=== PATIENT | female | born 1970 | race Caucasian/White ===

== ENCOUNTER 2022-07-11 16:06 | Emergency (ER) | payer OTHER ==
--- NOTE | 2022-07-11 17:25 | ED Physician Documentation ---
PD HPI BACK PAIN - Stated complaint Stated Complaint: BACK PAIN - Chief complaint Chief Complaint: Back Pain - History obtained from History obtained from: Patient - History of Present Illness Timing - onset: How many days ago (several) Timing - duration: Days (several) Timing - details: Gradual onset (patient with history of chronic low back pain on multiple daily meds. she states she had slip and fall on ice landing to left back/buttock. Not much worse pain at that time, but had increased pain later in day and into the past couple of days, despite her usual daily meds.), Still present Location: Lower, Left Quality: Pain, Spasm Associated symptoms: No: Fever, Weakness, Numbness Worsened by: Movement Contributing factors: Trauma (simple fall on ice to buttock/left side.) Review of Systems Constitutional: denies: Fever, Chills : denies: Dysuria, Frequency Skin: denies: Rash, Lesions Neurologic: denies: Focal weakness, Numbness PD PAST MEDICAL HISTORY - Past Medical History Cardiovascular: None Respiratory: None Musculoskeletal: Chronic back pain - Present Medications Home Medications: Ambulatory Orders Medication Instructions Recorded Confirmed Hydromorphone HCl 1 tab PO TID 07/11/22 07/11/22 Levothyroxine [Synthroid] 125 mcg PO QDAC 07/11/22 07/11/22 Oxycodone HCl 10 mg PO QID PRN #20 tablet 07/11/22 buprenorphine HCL [Buprenorphine 8 mg SL BID 07/11/22 07/11/22 HCl] dexAMETHasone [Decadron] 4 mg PO DAILY #5 tablet 07/11/22 diazePAM [Valium] 5 mg PO TID PRN #20 tablet 07/11/22 - Allergies Allergies/Adverse Reactions: Allergies Allergy/AdvReac Type Severity Reaction Status Date / Time No Known Drug Allergies Allergy Verified 07/11/22 16:12 - Living Situation Living Situation: reports: With spouse/s.o. Living Arrangement: reports: At home, Other (lives in [place], here the past 5 days and leaving in about 10 days. Helping daughter move to this area. ) PD ED PE NORMAL - Vitals Vital signs reviewed: Yes - General General: Alert and oriented X 3, Well developed/nourished, Other (guarded ROM of the low back as causes increased pain. ) - Abdomen Abdomen: Soft, Non tender - Back Back: No CVA TTP, No spinal TTP (is not tender spinal area per se. More in upper lumbar muscles to left. No rash nor skin sensitivity. ) - Derm Derm: Normal color, Warm and dry, No rash - Neuro Neuro: Alert and oriented X 3, No motor deficit, No sensory deficit Results - Vitals Vitals: Vital Signs - 24 hr 07/11/22 07/11/22 16:12 18:59 Temperature 36.5 C Heart Rate 78 78 Respiratory 16 16 Rate Blood Pressure 116/72 112/78 O2 Saturation 98 99 Oxygen O2 Source Room air - Rads (name of study) lumbar CT Radiology: Prelim report reviewed (possible very small avulsion t12 anterior superior endplate without edema versus artifact/volume averaging.), EMP read indepedently, See rad report PD Medical Decision Making - ED course Complexity details: re-evaluated patient, considered differential (chronic back pain with worsening, after driving up from [place] over couple days. but did have slip on ice and fell to buttock/back. So consider traumatic injury. ct scan considered and ordered after discussion with patient. ), d/w patient Reviewed Lab Results: review lumbar cT by me did not see any acute injury. Radiologist considers possible very small avulsive fracture T12 anterior superior endplate without swelling or other acute findings. Social Determinants of Health: patient visiting here helping daughter move. they are returning back in about 10 days, so to follow up there if some persistence of increased pain. Otherwise recheck here as needed. Patient does not have ADELINE form here but [place] would not get Rx info from [place], but at least has not been to other [place] ERs as yet. Drug Therapy Requiring Monitoring for Toxicity: She is on chronic pain meds with dilaudid and buprenorphine (interesting combination) along with Skelaxin, NSAIDs, Lyrica and lidocaine patches. Can add short term/ short acting meds such as oxycodone to the amount. Here in ER gave additional dialuadid in form of IM med. 2 mg initially as concern for compounded effect with her other meds. Minimal improvement and no sedation. So more evident that her tolerance level is high and can have more meds. Given more Dilaudid IM with moderate improvement. Rx with adding oxycodone, decadron and diazepam with intention of short term for pain of injury. ED course: patient discharged prior to final Radiology report. The result is in prior to my doing this report. I called patient to advise of Radiologist reading. It would not change current treatment plan per se. Departure - Departure Disposition: 01 Home, Self Care Clinical Impression: Acute exacerbation of chronic low back pain Fall from slipping on ice Qualifiers: Encounter type: initial encounter Qualified Code(s): W00.9XXA - Unspecified fall due to ice and snow, initial encounter Condition: Stable Record reviewed to determine appropriate education?: Yes Prescriptions: dexAMETHasone [Decadron] 4 mg PO DAILY #5 tablet Oxycodone HCl 10 mg PO QID PRN #20 tablet PRN Reason: Pain diazePAM [Valium] 5 mg PO TID PRN #20 tablet PRN Reason: Spasms Comments: You do take multiple medications working in multiple ways for your ongoing back pain. These include opioids, muscle relaxants, topical treatments, anti-inflammatories, neuropathy medications. It is hard to add to them much of them to increase your regimen. Your CT scan does not show any acute obvious fractures and my reading of the scan. Radiology report is still pending. I do not anticipate a difference in the readings. We can add some level of pain medication and a different muscle relaxant and anti-inflammatories in the short-term for the flareup of your back pain. I sent these prescriptions to [facility] pharmacy in [place]. I am prescribing a short course of narcotic pain medication for you. These are potentially dangerous and addictive medications that should be used carefully. These medications may constipate you. Take an [id number] stool softener such as docusate twice daily with plenty of water while taking these medication s. If you go 24 hours without a bowel movement, take [id number] MiraLAX, per package instructions. Do not drink or drive while taking these medications. If you received narcotic or sedating medications while in the emergency department do not drive for 24 hours. Store this medication in a safe, secure place and out of reach of children. It is a violation of federal law to give or sell this medication to another person or to use in a manner other than prescribed. The ED will not refill narcotic prescriptions, including prescriptions lost or stolen. You can dispose of unwanted medications at the [facility]'s office or at several pharmacies such as [facility]. Discharge Date/Time: 07/11/22 18:59
[2022-07-11] MEDS ORDERED: CHERRY SYRUP 10 ML UDC PO ONE (17:36)
[2022-07-11] MEDS ORDERED: KETOROLAC 30 MG/ML VIAL IM STA (17:36)
[2022-07-11] MEDS ORDERED: DEXAMETHASONE 10 MG/ML VIAL PO STA (17:36)
[2022-07-11] MEDS ORDERED: tiZANidine 4 MG TABLET PO STA (17:36)
[2022-07-11] MEDS ORDERED: HYDROmorphone 2 MG/ML VIAL IM STA ×2 (17:36→18:30)
--- NOTE | 2022-07-11 18:48 | CT Report ---
PROCEDURE: LUMBAR SPINE WO INDICATIONS: fall on ice; thoracolumbar area pain TECHNIQUE: Noncontrast 3 mm thick sections acquired from the T12 level to the sacrum. Sagittal and coronal refo rmats were constructed. For radiation dose reduction, the following was used: automated exposure co ntrol, adjustment of mA and/or kV according to patient size. COMPARISON: None. FINDINGS: Image quality: Excellent. Bones: There is minimal grade 1 anterolisthesis of L4 on L5. Possible very small anterior, superior endplate fracture of the T12 vertebral body. No significant surrounding soft tissue inflammation. Thi s may represent volume averaging artifact of the degenerative osteophyte. Otherwise, no acute vertebr al body compression fractures. No suspicious lytic or blastic bony lesions. Central spinal caliber is of normal overall caliber. No pars defects. Mild multilevel lumbar spondylosis. Soft tissues: No retroperitoneal masses or hematomas. Visualized aorta is normal in caliber. IMPRESSION: Possible very small anterior, superior endplate chip fracture of the T12 vertebral body. No loss of v ertebral body height. CT lumbar spine without acute fracture or traumatic malalignment. Reviewed by: Dima Dorado MD on 07/11/2022 6:46 PM PST Approved by: Dima Dorado MD on 07/11/2022 6:46 PM PST Station ID: [id number]
[2022-07-11 19:00] VITALS: BP 112/78
== END 2022-07-11 18:59 | disposition home or self-care (01) ==
LOC: ED 16:06
DX: M54.50 Low back pain, unspecified (principal); G89.29 Other chronic pain; W00.9XXA Unspecified fall due to ice and snow, initial encounter
CPT/HCPCS: 72131; 96372; 99283; 99284; A9270; J1170

== ENCOUNTER 2022-07-15 14:06 | Emergency (ER) | payer OTHER ==
[2022-07-15] MEDS ORDERED: methocarbamoL 500 MG TABLET PO STA (16:40)
[2022-07-15] MEDS ORDERED: KETOROLAC 60 MG/2 ML VIAL IM STA (16:40)
[2022-07-15] MEDS ORDERED: LIDOCAINE PATCH 5% TOP STA (16:40)
--- NOTE | 2022-07-15 16:46 | ED Physician Documentation ---
PD HPI BACK PAIN - Stated complaint Stated Complaint: BACK PX - Chief complaint Chief Complaint: Back Pain - History obtained from History obtained from: Patient, Family - History of Present Illness Pain level max: 7 Pain level now: 5 Location: Mid, Right, Left Quality: Pain, Spasm Associated symptoms: No: Fever, Weakness, Numbness, Incontinent of urine, Unable to urinate, Hematuria, Incontinent of stool Improves with: Rest Worsened by: Movement Contributing factors: No: Cancer, IVDA - Additional information Additional information: Patient is a 52-year-old female who presents to the emergency department with acute on chronic back pain. She states that she has had several falls. She was seen here recently and diagnosed with a possible T12 endplate compression fracture, no loss of height. Unclear if this is new, old or artifact. Patient is on hydromorphone and buprenorphine at home. She was given Dilaudid IM here at her last visit and prescribed oxycodone and Valium. She states she is still having pain. No loss of bowel or bladder control. No fevers. No chills. No new falls. No IV drug use. Worse with movement, better with rest. Review of Systems Constitutional: denies: Fever, Chills Respiratory: denies: Cough GI: denies: Nausea, Vomiting, Diarrhea : denies: Unable to Void, Incontinent Skin: denies: Rash Musculoskeletal: denies: Neck pain Neurologic: denies: Focal weakness, Numbness, Headache PD PAST MEDICAL HISTORY - Past Medical History Past Medical History: Yes Cardiovascular: None Respiratory: None Musculoskeletal: Chronic back pain - Present Medications Home Medications: Ambulatory Orders Medication Instructions Recorded Confirmed Hydromorphone HCl 2 mg PO TID 07/11/22 07/15/22 Levothyroxine [Synthroid] 125 mcg PO QDAC 07/11/22 07/15/22 Oxycodone HCl 10 mg PO QID PRN #20 tablet 07/11/22 buprenorphine HCL [Buprenorphine 4 mg SL BID 07/11/22 07/15/22 HCl] dexAMETHasone [Decadron] 4 mg PO DAILY #5 tablet 07/11/22 diazePAM [Valium] 5 mg PO TID PRN #20 tablet 07/11/22 Ketorolac [Toradol] 10 mg PO Q6H PRN #20 tablet 07/15/22 Lidocaine Patch 5% [Lidoderm Patch] 1 patch TOP DAILY PRN #10 patch 07/15/22 Lumateperone Tosylate [Caplyta] 42 mg PO DAILY 07/15/22 07/15/22 Metaxalone 800 mg PO TID 07/15/22 07/15/22 Pregabalin [Lyrica] 150 mg PO TID 07/15/22 07/15/22 Progesterone, Micronized 100 mg PO DAILY 07/15/22 07/15/22 [Prometrium] Propranolol [Inderal] 10 mg PO TID 07/15/22 07/15/22 Sumatriptan Succinate [Imitrex] 100 mg PO DAILY PRN 07/15/22 07/15/22 Trazodone HCl 300 mg ORAL HS 07/15/22 07/15/22 Venlafaxine [Effexor] 100 mg PO TID 07/15/22 07/15/22 Zolpidem [Ambien] 5 mg PO HS 07/15/22 07/15/22 buPROPion [Wellbutrin Sr] 150 mg PO BID 07/15/22 07/15/22 cloNIDine [Catapres] 0.1 mg PO DAILY 07/15/22 07/15/22 diazePAM [Valium] 5 mg PO TID PRN #15 tablet 07/15/22 - Allergies Allergies/Adverse Reactions: Allergies Allergy/AdvReac Type Severity Reaction Status Date / Time No Known Drug Allergies Allergy Verified 07/15/22 14:13 PD ED PE NORMAL - Vitals Vital signs reviewed: Yes - General General: Alert and oriented X 3, No acute distress, Well developed/nourished - HEENT HEENT: Moist mucous membranes - Neck Neck: Supple, no meningeal sign, No bony TTP - Cardiac Cardiac: RRR, Strong equal pulses - Respiratory Respiratory: No respiratory distress, Clear bilaterally - Abdomen Abdomen: Soft, Non tender, Non distended - Back Back: No spinal TTP, Other (No midline tenderness to palpation or percussion. No step-off or deformity.) - Derm Derm: Warm and dry - Extremities Extremities: No edema, No calf tenderness / cord - Neuro Neuro: Alert and oriented X 3, Other (Normal bilateral lower extremity patellar and ankle jerk reflexes. Normal great toe extension bilaterally. no saddle anesthesia) - Psych Psych: Normal mood, Normal affect Results - Vitals Vitals: Vital Signs - 24 hr 07/15/22 07/15/22 07/15/22 14:10 18:22 19:09 Temperature 36.2 C L Heart Rate 92 80 79 Respiratory 14 19 18 Rate Blood Pressure 99/68 149/106 H 114/74 O2 Saturation 96 97 97 07/15/22 19:30 Temperature Heart Rate 78 Respiratory 16 Rate Blood Pressure 114/74 O2 Saturation 100 Oxygen O2 Source Room air PD Medical Decision Making - ED course Complexity details: reviewed results, re-evaluated patient, considered differential (No cauda equina, no spinal epidural abscess, no fracture, no aortic dissection or evidence of aneursym rupture), d/w patient, d/w family ED course: 52-year-old female presents with acute on chronic back pain. She was seen here 4 days ago, had a CT scan that showed a possible endplate fracture. She has no evidence of cauda equina, epidural abscess. No indication for MRI. Appears to be a soft tissue injury at this point. She is already on Dilaudid and buprenorphine at home. When she was seen here previously she was given several milligrams of Dilaudid intramuscularly and prescribed oxycodone and Valium. Informed the patient that I am not comfortable prescribing those medications in combination with her home pain medications as this can be quite dangerous, sedating, leading to respiratory depression and cause . The patient was given Toradol, Robaxin. She requests a ketamine infusion as that has helped in the past. This was performed. The patient requested ketamine be prescribed for home, informed her that ketamine is not available for home use. She could potentially have a cream compounded with ketamine by her primary care provider when she returns home to [place]. Pain is well controlled here. Offered the patient a walker but she refuses this. Ambulating well. We will have her follow-up with her PCP for further care. Patient counseled regarding signs and symptoms for which I believe and urgent re-evaluation would be necessary. Patient with good understanding of and agreement to plan and is comfortable going home at this time This document was made in part using voice recognition software. While efforts are made to proofread this document, sound alike and grammatical errors may occur. Departure - Departure Disposition: Home, Self Care Clinical Impression: Acute exacerbation of chronic low back pain Condition: Good Instructions: ED Sprain Strain Lumbar Follow-Up: Provider,Other [Primary Care Provider] - Within 1 week Prescriptions: Lidocaine Patch 5% [Lidoderm Patch] 1 patch TOP DAILY PRN #10 patch PRN Reason: pain Ketorolac [Toradol] 10 mg PO Q6H PRN #20 tablet PRN Reason: back pain diazePAM [Valium] 5 mg PO TID PRN #15 tablet PRN Reason: Spasms Comments: Your prescriptions were sent to [facility] in [place]. Please follow-up with your doctor when you return home to [place]. You can use heat and ice as well. The CT results from your last visit are below. FINDINGS: Image quality: Excellent. Bones: There is minimal grade 1 anterolisthesis of L4 on L5. Possible very small anterior, superior endplate fracture of the T12 vertebral body. No significant surrounding soft tissue inflammation. This may represent volume averaging artifact of the degenerative osteophyte. Otherwise, no acute vertebral body compression fractures. No suspicious lytic or blastic bony lesions. Central spinal caliber is of normal overall caliber. No pars defects. Mild multilevel lumbar spondylosis. Soft tissues: No retroperitoneal masses or hematomas. Visualized aorta is normal in caliber. IMPRESSION: Possible very small anterior, superior endplate chip fracture of the T12 vertebral body. No loss of vertebral body height. CT lumbar spine without acute fracture or traumatic malalignment. Discharge Date/Time: 07/15/22 19:30
[2022-07-15] MEDS ORDERED: KETAMINE 40 MG in SODIUM CHLORIDE 0.9% 100ML 100 ML IV STA (17:40)
[2022-07-15] MEDS ORDERED: diazePAM 5 MG TABLET PO STA (17:57)
[2022-07-15 19:10] VITALS: BP 114/74
== END 2022-07-15 19:30 | disposition home or self-care (01) ==
LOC: ED 14:06
DX: M54.50 Low back pain, unspecified (principal); G89.29 Other chronic pain
CPT/HCPCS: 96365; 96372; 99284; A9270